=== PATIENT | female | born 1955 | race Caucasian/White ===

== ENCOUNTER 2018-01-23 11:14 | Emergency (ER) | payer SELFPAY | END 2018-01-23 13:32 | disposition home or self-care (01) | LOC: M ED 11:14 | DX: N81.4 Uterovaginal prolapse, unspecified (principal); Z87.440 Personal history of urinary (tract) infections; Z78.0 Asymptomatic menopausal state | CPT/HCPCS: 99283 ==

== ENCOUNTER 2018-03-01 08:56 | Inpatient (IN) | payer SELFPAY ==
[2018-03-01] MEDS ORDERED: ceFAZolin 2 GM/D5W 50 ML IV BAG (J0690 PER 500MG) As Ordered (09:27)
[2018-03-01 09:39] LABS: HEMATOCRIT 43.8 % (36.0-47.0); HEMOGLOBIN 14.3 g/dl (12.0-15.5); MEAN CORPUSCULAR HEMOGLOBIN 28.7 pg (27.0-33.0); MEAN CORPUSCULAR HGB CONC 32.6 g/dl (32.0-36.5); PLATELET COUNT, AUTOMATED 399 10^3/uL (150-450); RED BLOOD COUNT 4.98 10^6/uL (4.00-5.40); WHITE BLOOD COUNT 6.9 10^3/uL (4.0-10.0)
[2018-03-01 09:56] LABS: ALBUMIN 3.6 GM/DL (3.2-5.2); ALBUMIN/GLOBULIN RATIO 0.82 (1.00-1.93); ALKALINE PHOSPHATASE 84 U/L (45-117); ALT/SGPT 23 U/L (12-78); ANION GAP 6 MEQ/L (8-16); AST/SGOT 16 U/L (7-37); BILIRUBIN,TOTAL 0.3 MG/DL (0.2-1.0); BLOOD UREA NITROGEN 14 MG/DL (7-18); CALCIUM LEVEL 9.3 MG/DL (8.8-10.2); CARBON DIOXIDE LEVEL 28 MEQ/L (21-32); CHLORIDE LEVEL 110 MEQ/L (98-107); CREATININE FOR GFR 0.91 MG/DL (0.55-1.30); GLOMERULAR FILTRATION RATE > 60.0 (>45); GLUCOSE, FASTING 103 MG/DL (70-100); POTASSIUM SERUM 4.4 MEQ/L (3.5-5.1); SODIUM LEVEL 144 MEQ/L (136-145)
[2018-03-01] MEDS: LR 1,000 ML IV ×3 (10:33→20:15)
[2018-03-01] MEDS ORDERED: MIDAZOLAM INJ 2 MG/2 ML VIAL (J2250) As Ordered (14:20)
[2018-03-01] MEDS ORDERED: fentaNYL 100 MCG/2 ML INJECTION (J3010) As Ordered ×2 (14:21→16:17)
[2018-03-01] MEDS ORDERED: PROPOFOL 200 MG/20 ML VIAL As Ordered (14:22)
[2018-03-01] MEDS ORDERED: ROCURONIUM BROMIDE 50 MG/5 ML VIAL As Ordered (14:22)
[2018-03-01] MEDS ORDERED: LIDOCAINE 2% INJ 100 MG/5 ML SDV (FOR ANES.) As Ordered ×2 (14:22→15:26)
[2018-03-01] MEDS: BUPIVACAINE/EPIN 0.5% 30 ML VIAL As Ordered (15:21)
[2018-03-01] MEDS: ACETAMINOPHEN 650 MG SUPP As Ordered (15:21)
[2018-03-01] MEDS ORDERED: ONDANSETRON 4MG/2ML VIAL (J2405) As Ordered (15:23)
[2018-03-01] MEDS ORDERED: KETOROLAC 60 MG/2 ML VIAL (J1885) As Ordered (15:23)
[2018-03-01] MEDS ORDERED: dexameTHASONE 4 MG/ML 1ML VIAL (J1100) As Ordered (15:23)
[2018-03-01] MEDS: ACETAMINOPHEN 650 MG SUPP PR (16:05)
[2018-03-01] MEDS ORDERED: ePHEDrine SULFATE 25 MG/5 ML(5MG/ML) SYRINGE As Ordered (16:08)
[2018-03-01] MEDS ORDERED: LABETALOL HCL 100 MG/20 ML VIAL As Ordered (16:19)
[2018-03-01] MEDS ORDERED: HYDROmorphone HCL 2 MG/ML 1ML VIAL (J1170) As Ordered (16:41)
[2018-03-01] MEDS: VASOPRESSIN INJ 20 UNITS/ML VIAL As Ordered (17:03)
[2018-03-01] MEDS ORDERED: hydrALAZINE INJ 20 MG/ML VIAL As Ordered (17:09)
[2018-03-01] MEDS ORDERED: GLYCOPYRROLATE INJ 0.2 MG/ML 2 ML VIAL As Ordered (17:58)
[2018-03-01] MEDS ORDERED: NEOSTIGMINE 10 MG/10 ML VIAL (J2710) As Ordered (17:59)
[2018-03-01] MEDS: SIMETHICONE 80 MG CHEW TAB PO (18:00)
[2018-03-01] MEDS: FLUORESCEIN 10% (100MG/ML) 5 ML VIAL As Ordered (18:12)
[2018-03-01] MEDS ORDERED: fentaNYL 100 MCG/2 ML INJECTION (J3010) IV (19:15)
[2018-03-01] MEDS ORDERED: HYDROMORPHONE HCL 0.5 MG/ 0.5 ML SYRINGE (J1170 PER 1) IV (19:15)
[2018-03-01] MEDS ORDERED: ONDANSETRON 4MG/2ML VIAL (J2405) IV (19:15)
[2018-03-01] MEDS ORDERED: PERCOCET 5MG/325MG TAB PO (19:30)
[2018-03-01] MEDS: PERCOCET 5MG/325MG TAB PO (19:52)
[2018-03-01] MEDS: IBUPROFEN 800 MG TAB PO (22:25)
[2018-03-02] MEDS: IBUPROFEN 800 MG TAB PO ×2 (04:27→09:57)
[2018-03-02] MEDS: LR 1,000 ML IV (05:30)
[2018-03-02] MEDS: SIMETHICONE 80 MG CHEW TAB PO ×2 (05:41)
== END 2018-03-02 12:05 | disposition home or self-care (01) | DRG 513 ==
LOC: M OR 08:56 → M MSPAV 20:09
PROC: 0UT90ZZ Resection of Uterus, Open Approach (ICD-10-PCS; principal; 2018-03-01 14:15)
PROC: 0UUG0JZ Supplement Vagina with Synthetic Substitute, Open Approach (ICD-10-PCS; 2018-03-01 14:15)
DX: N81.3 Complete uterovaginal prolapse (principal); N95.0 Postmenopausal bleeding